=== PATIENT | male | born 2000 | race African-American/Black ===

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

== ENCOUNTER 2024-05-20 08:57 | Emergency (ER) | payer OTHER | END 2024-05-20 09:55 | disposition home or self-care (01) | LOC: ERS 08:57 | DX: J11.1 Influenza due to unidentified influenza virus with other respiratory manifestations (principal) | CPT/HCPCS: 87428; 99283 ==